=== PATIENT | female | born 1975 | race Caucasian/White ===

== ENCOUNTER 2020-04-19 15:54 | Emergency (ER) | payer SELFPAY ==
[2020-04-19 16:11] VITALS: BP 148/91; PULSE 71; RESP 21; TEMP 36.7; O2SAT 98; BMI 28.3
--- NOTE | 2020-04-19 16:17 | XR_ITS ---
PROCEDURE: XR HAND LT MIN 3V CLINICAL INDICATION: INJURY RING FINGER COMPARISON: No exams were available for comparison FINDINGS: Comminuted fracture involves the proximal and volar aspect of the distal phalanx of the 4th digit extending into the proximal articular surface. There is an additional bony fragment along the proximal aspect of the middle phalanx of the 4th digit volar surface the bone of origin of this fragment is unknown. This fragment is at least 1.6 cm proximal to the distal phalanx. The joint spaces are well-preserved. No significant degenerative/arthritic changes. No erosive changes evident. Other findings:None. IMPRESSION: Comminuted fracture distal phalanx 4th digit. There is a displaced which fragment overlies the proximal aspect of the middle phalanx Dictated by: Cristopher Mares MD 04/19/2020 16:40 Electronically signed by Cristopher Mares MD in [place] 04/19/2020 16:40
--- NOTE | 2020-04-19 16:45 | HMH.EDUTC ---
[facility] – [place] Disposition Clinical Impression: Flexor tendon bowstring Finger fracture, left Qualifiers: Encounter type: initial encounter Finger: ring finger Fracture type: closed Phalanx: distal Fracture alignment: displaced Qualified Code(s): S62.635A - Displaced fracture of distal phalanx of left ring finger, initial encounter for closed fracture Disposition: Home, Self-Care Condition on Discharge: Good Instructions: Finger Fracture, DI for Finger Fracture, Finger Flexor Tendon Injury, How To Perform RICE (Rest, Ice, Compress, Elevate), DI for Finger Flexor Tendon Injury Additional Instructions: DO not remove splint *Call [facility] tomorrow morning and ask them for appointment with Dr Gonsales in the clinic for fracture of finger with flexor tendon injury *RICE, Rest the extremity, Ice 15-20 minutes 3-4 times daily, Compress- wear the jaycob wrap as discussed as much as possible to help reduce swelling and pain, Elevate the extremity when at rest *Splint is for support Do not remove *Elevate when resting *Ibuprofen very 6-8 hours as needed for pain an inflammation. If need something more can take Tylenol in between doses of Ibuprofen to help Immediately follow up with your family doctor for new or worsening of symptoms, or no noticeable improvement over the next 3-5 days Return if needed Straight to ER if any life threatening symptoms You was given a disk of your xray make sure to take that with you to your appointment MAKE APPOINTMENT WITH PLASTIC SURGERY HAND WITH DR. GONSALES Referrals: Allison Marcial APRN [Primary Care Provider] - Plastic Surgery Hand Dr Gonsales [Other] Time of Disposition: 17:44 Medical Decision Making - Donis Inquiry Pt receiving controlled substance: No Donis was queried for this patient: No Vital Signs: 04/19/20 16:11 04/19/20 18:26 Temperature 98.0 F 98.0 F Temperature Source Temporal Artery Scan Pulse Rate 71 Pulse Rate [Right Brachial] 71 Respiratory Rate 21 21 Blood Pressure 148/91 H Blood Pressure [Right Arm] 148/91 H Blood Pressure Mean [Right Arm] 110 Blood Pressure Source [Right Arm] Automatic Cuff Blood Pressure Position [Right Arm] Sitting 02 Sat by Pulse Oximetry 98 Oxygen Delivery Method Room Air - Radiology Data #1 Image(s): Hand Image Reviewed: Yes I have reviewed radiologist's interpretation Comminuted fracture distal phalanx 4th digit. There is a displaced which fragment overlies the proximal aspect of the middle phalanx - Physician Consults Physician Consulted: Jose J Time: 16:50 Reason -: Orthopedic Eval/Care Comment/Response: Dr Lux notified advised that he would look at xray and call back to the [facility] with further instructions Dr Lux called back after looking at xrays and advised injury involved flexor tendon and recommended to be referred to Hand Surgeon for further evaluation and treatment Additional Consult: Flakito Time: 17:10 Reason -: Orthopedic Eval/Care Comment/Response: Spoke with international banker for [facility] advised they was unable to take patient due to no insurance and self pay to contact [facility] or [facility] they do self pay They was unable to see anyone without health insurance Additional Consult: [facility] Time: 17:29 Reason -: Orthopedic Eval/Care Comment/Response: Called [facility] and Spoke with Dr Hull and informed him of findings on xray and fracture with involvement of flexor tendon he advised if no open fracture, Dorsal posterior splint to relieve tension on flexor tendon at 90% curve and call [facility] tomorrow morning for appointment on Saturday with Dr Gonsales Medical Decision Narrative: Patient states that she has been unable to bend left ring finger since she was hit States that feels tight and hurts when she moves it No open fractures noted Patient advised tolerating pain well Discussed with patient that she needed to call Plastics tomorrow morning and request appointment with Dr Gonsales patient verbali
[2020-04-19 18:26] VITALS: BP 148/91; PULSE 71; RESP 21; TEMP 36.7; O2SAT 98
== END 2020-04-19 18:38 | disposition home or self-care (01) ==
PROVIDERS: Emergency Provider Nurse Practitioner; PCP Nurse Practitioner Family
DX: S62.635A Displaced fracture of distal phalanx of left ring finger, initial encounter for closed fracture (principal); S56.19 Other injury of flexor muscle, fascia and tendon of other and unspecified finger at forearm level; W31.89XA Contact with other specified machinery, initial encounter; Y92.019 Unspecified place in single-family (private) house as the place of occurrence of the external cause
CPT/HCPCS: 29125; 73130; 99203

== ENCOUNTER → 2020-08-17 15:17 | Outpatient (CLI) | payer SELFPAY ==
[2020-08-19 13:52] LABS: Covid-19 Nasal PCR Sendout Lex POSITIVE
== END ==
PROVIDERS: PCP Nurse Practitioner Family; Visit Provider Nurse Practitioner Family
DX: Z20.828 Contact with and (suspected) exposure to other viral communicable diseases (principal); U07.1 COVID-19
CPT/HCPCS: U0004

== ENCOUNTER 2021-06-09 22:28 | Emergency (ER) | payer SELFPAY ==
[2021-06-09 22:35] VITALS: BP 170/97; PULSE 87; RESP 17; TEMP 37.3; O2SAT 97; BMI 29.9
--- NOTE | 2021-06-09 22:42 | XR_ITS ---
PROCEDURE INFORMATION: Exam: XR Right Foot Exam date and time: 06/09/2021 10:42 PM Age: 45 years old Clinical indication: Injury or trauma; Fall; Sprain or strain; Foot; Injury date: 06/09/2021; Patient HX: Fell down stairs hurt both feet left hurts worse than right but the right one does hurt TECHNIQUE: Imaging protocol: XR Right foot. Views: 3 or more views. COMPARISON: VENOUS LOWER EXT RT 02/06/2016 12:16 PM FINDINGS: Bones/joints: There is hallux valgus deformity of the right 1st metatarsophalangeal joint. Moderate degenerative changes of the right 1st metatarsophalangeal joint identified. Os naviculare is identified. No evidence of acute fracture. Remaining joint spaces of the right foot appear well maintained. There is no evidence of acute fracture. Osseous mineralization is normal. Soft tissues: Normal. 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 There is no evidence of acute fracture or overlying soft tissue swelling.
--- NOTE | 2021-06-09 22:42 | XR_ITS ---
PROCEDURE INFORMATION: Exam: XR Left Foot Exam date and time: 06/09/2021 10:42 PM Age: 45 years old Clinical indication: Injury or trauma; Fall; Sprain or strain; Injury date: 06/09/2021; Patient HX: Fell down stairs pain left foot TECHNIQUE: Imaging protocol: XR Left foot. Views: 3 or more views. COMPARISON: No relevant prior studies available. FINDINGS: Bones/joints: No evidence of acute fracture. Individual joint spaces of the left foot appear well maintained. Benign os naviculare is identified. Osseous mineralization is normal. Soft tissues: Normal. IMPRESSION: No acute findings.
--- NOTE | 2021-06-09 23:58 | HMH.EDLOEX ---
ED Disposition Clinical Impression: Sprain of foot, left Qualifiers: Encounter type: initial encounter Qualified Code(s): S93.602A - Unspecified sprain of left foot, initial encounter Disposition: Home, Self-Care Condition on Discharge: Good Instructions: DI for Foot Sprain Additional Instructions: ice and advil/tyenol and wt bearing as chelsea and check bp Referrals: Allison Marcial APRN [Primary Care Provider] - Latrice Cruz DPM [Staff Physician] - - Critical Care Critical Care Time: No Attestation: On 06/09/21, the high probability of a clinically significant, sudden or life threatening deterioration of the following system(s) required my full and direct attention, intervention and personal management. The time I documented below is in addition to time spent performing reported procedures but includes the following listed in this critical care notation. Medical Decision Making - Medical Records Medical records reviewed: Yes: I reviewed the patient's medical records. - Donis Inquiry Pt receiving controlled substance: No Vital Signs: 06/09/21 22:35 Temperature 99.2 F Temperature Source Oral Pulse Rate [Right Brachial] 87 Respiratory Rate 17 Blood Pressure [Right Arm] 170/97 H Blood Pressure Mean [Right Arm] 121 Blood Pressure Source [Right Arm] Automatic Cuff Blood Pressure Position [Right Arm] Sitting 02 Sat by Pulse Oximetry 97 Oxygen Delivery Method Room Air - Lab Data Lab results reviewed: Yes: I reviewed the patient's lab results. Orders (Tests/Meds): ED MEDICATIONS Generic Name Dose Route Start Last Admin Trade Name Freq PRN Reason Stop Dose Admin Acetaminophen/Codeine Phosphate 1 eyal 06/09/21 23:56 Acetaminophen 300mg W/Codeine 30mg Take Home Pack (6) PO 06/09/21 23:57 ONCE ONE - Radiology Data #1 Image(s): Foot/Toes Image Reviewed: Yes I have reviewed radiologist's interpretation Preliminary Findings: No Fracture Seen Medical Decision Narrative: no fx seen and will have pt seen by podiatry Lower Extremity Injury HPI - General Chief Complaint: Extremity Injury, Lower Stated Complaint: AO fall 2100 injured feet Time Seen by Provider: 06/09/21 23:00 Mode of Arrival: Family Vehicle Source of Information: Patient, Medical Record Limitations: No Limitations Description of Symptoms (Recalled from ER Triage Doc. by RN): pt accidentally fell injuring both foot. left foot: lateral and anterior foot, right foot medial anterior foot. able to bear minimal weight on right foot, but difficulty on left - History of Present Illness HPI Narrative: acute injury to lt and rt foot - mis- stepped complaint: foot injury Onset (ago): hour(s) Injury: Bilateral: foot Type of Injury: hyperextension Place: home Context: fall Associated symptoms: snap/pop sensation, able to partially bear weight Other symptoms: none - Related Data Allergies Allergy/AdvReac Type Severity Reaction Status Date / Time No Known Allergies Allergy Verified 12/14/19 17:01 [facility] History - Hepatitis A Screen Drug use history?: No High risk sexual behaviors?: No History of sexually transmitted infection?: No Currently employed?: No Childcare worker?: No Do you have indoor plumbing?: Yes Do you have electricity?: Yes Attestation statement:: This patient has been screened for Hepatitis A risk factors. I have reviewed the patient's past medical history: Yes Medical History: Denies:: Diabetes Mellitus Type 1, Diabetes Mellitus Type 2 - Social History Smoking Status: Never smoker Alcohol Intake: never Occupational Status: other ROS Obtained: Yes All systems reviewed & no additional complaints - Constitutional Constitutional: Denies fever(s) - Eyes Eyes: Denies change in vision - ENT Ears, Nose, Mouth, and Throat: Denies sore throat - Cardiovascular Cardiovascular: Denies chest pain - Respiratory Respiratory: Denies shortness of breath - Gastrointestinal
[2021-06-10 00:06] VITALS: BP 162/90; PULSE 82; RESP 18; TEMP 36.7; O2SAT 99
== END 2021-06-10 00:12 | disposition home or self-care (01) ==
PROVIDERS: Emergency Provider Emergency Medicine; PCP Nurse Practitioner Family
DX: S93.602A Unspecified sprain of left foot, initial encounter (principal); M79.671 Pain in right foot; M79.672 Pain in left foot; W18.30XA Fall on same level, unspecified, initial encounter
CPT/HCPCS: 73630; 99283

== ENCOUNTER 2022-04-12 08:14 | Emergency (ER) | payer SELFPAY ==
[2022-04-12 08:30] VITALS: BP 125/69; PULSE 69; RESP 20; TEMP 36.9; O2SAT 95; BMI 30.9
--- NOTE | 2022-04-12 08:47 | CA_ITS ---
FINAL REPORT TECHNIQUE: Color Doppler, duplex Doppler and compression sonography of the right lower extremity venous system was performed. CLINICAL HISTORY: PAIN, SWELLING, Painful varicosities, Preious vein stripping of the Right leg FINDINGS: There is no evidence of deep venous thrombosis from the level of the groin to the calf. The veins are patent and compressible. IMPRESSION: No evidence of deep venous thrombosis right lower extremity. Reviewed, Interpreted and Dictated by Fercho Raygoza III, MD Transcribed by Charito Mas Authenticated and [facility]
--- NOTE | 2022-04-12 08:51 | HMH.EDUTC ---
[facility] [place] Clinical Impression: Cellulitis Qualifiers: Site of cellulitis: unspecified site Qualified Code(s): L03.90 - Cellulitis, unspecified Disposition: Home, Self-Care Condition on Discharge: Good Instructions: Cellulitis, Cephalexin Additional Instructions: *Start antibiotic(s) immediately and be sure to take as ordered for the FULL length of time although you may be feeling better or start to see improvement in the next 24-48 hours *Monitor closely. Outlined redness so that you can monitor easier. Follow up immediately for new or worsening symptoms including but not limited to redness, swelling, streaking from site fever or chills. *Warm compress 15 minutes 3-4 times day *Never squeeze or pop these on your own. Seek immediate medical attention next time this occurs *Monitor Temp. Tylenol every 4 hours as needed and ibuprofen every 6 hours as needed (as long as your primary care doctor has told you that it is ok to take both. For fever, aches, pain. ER if no less that 101 despite Tylenol and ibuprofen Follow up with your family doctor/primary care physician in the next 48-72 hours if no improvement Prescriptions: cephALEXin [cephALEXin 500mg capsule*] 500 mg PO QID 5 Days #20 cap Transmission Status: Received by [facility] Referrals: Allison Marcial APRN [Primary Care Provider] - As needed Medical Decision Making - Donis Inquiry Pt receiving controlled substance: No Donis was queried for this patient: No Vital Signs: 04/12/22 08:30 04/12/22 09:22 Temperature 98.4 F 98.4 F Temperature Source Oral Pulse Rate 69 Pulse Rate [Left Brachial] 69 Respiratory Rate 20 20 Blood Pressure 125/69 Blood Pressure [Left Arm] 125/69 Blood Pressure Mean [Left Arm] 87 Blood Pressure Source [Left Arm] Automatic Cuff Blood Pressure Position [Left Arm] Sitting 02 Sat by Pulse Oximetry 95 Oxygen Delivery Method Room Air - US Data US Images: Lower Extremity ED US Reviewed: Yes: I have viewed radiologist's interpretation Preliminary Findings: Normal/NAD Findings Narrative: FINDINGS: There is no evidence of deep venous thrombosis from the level of the groin to the calf. The veins are patent and compressible. IMPRESSION: No evidence of deep venous thrombosis right lower extremity. [facility] [place] - General Stated complaint: right leg pain Time Seen by Provider: 04/12/22 08:52 Mode of Arrival: Ambulatory Source of Information: Patient Limitations: No Limitations Description of Symptoms (Recalled from Triage Doc. by RN): PATIENT C/O PAIN TO RIGHT UPPER LEG WITH SOME SWELLING AND REDNESS. REPORTS A HISTORY OF BLOOD CLOTS HEENT Symptoms (Recalled from RN notes): No Resp Symptoms (Recalled from RN notes): No Skin Symptoms (Recalled from RN notes): No MS Symptoms (Recalled from RN notes): Yes Functional Status (Recalled from RN notes): WNL - History of Present Illness Provider Complaint: Patient states that she noticed she had a red area on her right upper thigh area and she has a history of DVT and she was concerned she may have another blood clot so she came in to get it checked out Denies any injury - Related Data Home Medications Medication Instructions Recorded Confirmed aspirin 81 mg tablet,delayed 81 mg PO DAILY 04/10/22 04/10/22 release metoprolol succinate 25 mg 25 mg PO DAILY tab 04/10/22 04/10/22 tablet,extended release 24 hr pantoprazole 40 mg tablet,delayed 40 mg PO DAILY 04/10/22 04/10/22 release Previous Rx's Medication Instructions Recorded triamterene 37.5 1 tab PO DAILY #90 tab 09/28/21 mg-hydrochlorothiazide 25 mg tablet phenytoin sodium extended 100 mg See Rx Instructions .ROUTE 02/14/22 capsule .COMPLEX #90 cap hydroxyzine HCl 10 mg tablet See Rx Instructions .ROUTE 04/02/22 .COMPLEX #90 tab fluconazole 150 mg tablet 150 mg PO ONCE #2 tab 04/10/22 cephALEXin [cephALEXin 500mg 500 mg PO QID 5 Days #20 cap 04/12/22 capsule*] Allergies Al
[2022-04-12 09:22] VITALS: BP 125/69; PULSE 69; RESP 20; TEMP 36.9; O2SAT 95
== END 2022-04-12 09:26 | disposition home or self-care (01) ==
PROVIDERS: Emergency Provider Nurse Practitioner; PCP Nurse Practitioner Family
DX: L03.115 Cellulitis of right lower limb (principal); Z86.718 Personal history of other venous thrombosis and embolism; Z79.82 Long term (current) use of aspirin; Z79.899 Other long term (current) drug therapy; I10 Essential (primary) hypertension; I49.9 Cardiac arrhythmia, unspecified
CPT/HCPCS: 93971; 99213; G0463

== ENCOUNTER 2022-10-06 06:41 | Emergency (ER) | payer SELFPAY ==
[2022-10-06 06:42] VITALS: BP 113/63; PULSE 102; RESP 20; TEMP 37; O2SAT 99; BMI 30.9
[2022-10-06 06:56] VITALS: BMI 30.9
[2022-10-06 07:00] VITALS: BP 113/63; PULSE 82; O2SAT 96
--- NOTE | 2022-10-06 07:16 | CT_ITS ---
PROCEDURE INFORMATION: Exam: CT Lumbar Spine Without Contrast Exam date and time: 10/06/2022 7:48 AM Age: 46 years old Clinical indication: Other: Right groin pain; Additional info: R groin pain radiating TECHNIQUE: Imaging protocol: Computed tomography of the lumbar spine without contrast. Radiation optimization: All CT scans at this facility use at least one of these dose optimization techniques: automated exposure control; mA and/or kV adjustment per patient size (includes targeted exams where dose is matched to clinical indication); or iterative reconstruction. COMPARISON: ABDPELW CT ABD PELVIS W/ CONTRAST 04/02/2017 3:43 PM FINDINGS: Evaluation is somewhat limited by patient body habitus. Bones/joints: Degenerative change, of greatest severity at the L5-S1 level. Multilevel disc bulging. Spinal stenosis at the L4-L5 level due to combined disc bulging, ligamentous hypertrophy, and facet arthropathy.Note that assessment of disc, spinal cord, and nerve root pathology is limited in the absence of intrathecal contrast. Gallbladder and bile ducts: Status post cholecystectomy. Soft tissues: Unremarkable appearance of the paraspinous soft tissues. Injection granuloma. IMPRESSION: 1. Spinal stenosis at the L4-L5 level due to combined disc bulging, ligamentous hypertrophy, and facet arthropathy. 2. Degenerative change, of greatest severity at the L5-S1 level. 3. Additional findings as described above.
--- NOTE | 2022-10-06 07:18 | XR_ITS ---
PROCEDURE INFORMATION: Exam: XR Pelvis Exam date and time: 10/06/2022 7:48 AM Age: 46 years old Clinical indication: Pelvic pain; Additional info: Pain. Right lower quadrant pain TECHNIQUE: Imaging protocol: Radiologic exam of the pelvis. Views: 1 or 2 view. COMPARISON: ABDPELW CT ABD PELVIS W/ CONTRAST 04/02/2017 3:43 PM FINDINGS: Bones/joints: Mild degenerative change. No acute bony injury or malalignment. Soft tissues: Skin folds. Vasculature: Subcentimeter pelvic calcifications, presumably vascular in etiology. IMPRESSION: Mild degenerative change.
[2022-10-06 07:24] LABS: Chloride 101 mmol/L (98-107)
[2022-10-06 07:25] LABS: Basophils % 0.5 % (0.1-2.0); Eosinophils % 0.6 % (0.1-12.0); Hematocrit 41.5 % (37.0-47.0); Hemoglobin 13.7 g/dL (12.2-16.2); Lymphocytes # 1.2 K/mm3 (0.7-4.5); Lymphocytes % 16.6 % (10-50); Mean Corpuscular HGB Conc 32.9 g/dL (31.8-35.4); Mean Corpuscular Hemoglobin 30.4 pg (27.0-31.2); Mean Corpuscular Volume 92.3 fl (81-99); Mean Platelet Volume 8.1 fl (7.4-10.4); Monocytes # 0.3 K/mm3 (0.1-1.0); Monocytes % 4.4 % (1.7-9.3); Neutrophils # 5.8 K/mm3 (1.8-7.8); Neutrophils % 77.9 % (37.0-80.0); Platelet Count 278 K/mm3 (142-424); Potassium 3.4 mmoL/L (3.5-5.1); Sodium 134 mmol/L (136-145); White Blood Count 7.4 K/mm3 (4.8-10.8)
--- NOTE | 2022-10-06 07:26 | PC.NURSE ---
dr. gaston at bedside
[2022-10-06 07:27] LABS: Alanine Aminotransferase 26 U/L (12-78); Aspartate Amino Transferase 30 U/L (14-36); Blood Urea Nitrogen 11 mg/dl (7-17); Creatinine Clearance Estimated 116 mL/min (50-200); Estimated Glomerular Filt Rate 78 ml/min (>60); GFR (African American) 94 ML/MIN (>60)
[2022-10-06 07:28] LABS: Albumin Level 4.1 g/dl (3.5-5.0); Albumin/Globulin Ratio 1.4 (1.1-1.8); Alkaline Phosphatase 86 U/L (38-126); Anion Gap 10.4 mEq/L (5-15); Bilirubin,Total 0.4 mg/dl (0.2-1.3); Calcium 9.3 mg/dl (8.4-10.2); Carbon Dioxide 26 mmol/L (22.0-30.0); Globulin 2.9 g/dL (1.3-3.2); Glucose 123 mg/dl (74-100); Magnesium 1.7 mg/dl (1.6-2.3)
[2022-10-06 07:32] LABS: HCG Qualitative, Serum Negative (Negative)
[2022-10-06 07:43] LABS: Microscopic, Urine URINE MICROSCOPIC (MICROSCOPIC)
--- NOTE | 2022-10-06 07:46 | PC.NURSE ---
pt to radiology
[2022-10-06 07:48] LABS: Appearance,Urine CLEAR (Clear); Bilirubin,Urine Negative (Negative); Blood, Urine Negative (Negative); Color,Urine YELLOW (Yellow); Glucose,Urine (UA) Negative (Negative); Ketones,Urine Negative (Negative); Leukocyte Esterase,Urine Negative (Negative); Nitrate,Urine Negative (Negative); Protein,Urine Negative (Negative); Specific Gravity, Urine 1.015 (1.005-1.030); Urobilinogen,Urine 0.2 EU/dl (0.2)
[2022-10-06 07:54] LABS: Phenytoin (Dilantin) < 3.0 ug/ml (10-20)
[2022-10-06 07:59] LABS: Bacteria,Urine Trace /lpf
--- NOTE | 2022-10-06 08:28 | HMH.EDGENADL ---
Discharge Plan Disposition Patient Disposition: Home, Self-Care Prescriptions Prescriptions: No Action aspirin 81 mg tablet,delayed release (DR/EC) 81 mg PO DAILY pantoprazole 40 mg tablet,delayed release (DR/EC) 40 mg PO DAILY phenytoin sodium extended 100 mg capsule See Rx Instructions .ROUTE .COMPLEX Rx Instructions: TAKE ONE CAPSULE BY MOUTH ONCE A DAY triamterene-hydrochlorothiazid 37.5-25 mg tablet 1 tab PO DAILY metoprolol succinate 25 mg tablet extended release 24 hr See Rx Instructions .ROUTE .COMPLEX Rx Instructions: TAKE ONE TABLET BY MOUTH ONCE A DAY FOR HYPERTENSION hydroxyzine HCl 10 mg tablet See Rx Instructions .ROUTE .COMPLEX Rx Instructions: TAKE ONE TABLET BY MOUTH 3 TIMES A DAY NEEDED FOR ITCHING Referrals Follow up/Referrals: Karthik Roy MD [Primary Care Provider] - See instructions Clinical Impressions Clinical Impression: Lumbar radicular syndrome, Degenerative lumbar spinal stenosis Instructions Patient Instructions: DI for Lumbar Radiculopathy Discharge ED Provider: Cristofer Whitlock General Adult HPI General Chief complaint: PAIN Stated complaint: Pain in right leg, no injury Time Seen by Provider: 10/06/22 07:35 Mode of Arrival: Family Vehicle Source of Information: Patient and Spouse Limitations: No Limitations Description of Symptoms (Recalled from ER Triage Doc. by RN): Pt c/o radiating pain from R groin/hip area through RLE. Pulses and CLOTH CLASSER are WNL. No redness, rash, or injury noted to RLE. Spouse states she has back trouble and previsou surgery and typically her LLE is effected. However, yesterday she noted the RLE to be burning all the way down while walking. Then in the evening and t/o the night RLE was jumping and cramping . She has taken tylenol & motrin with very little relief. Laying on her R side provides a small amount of relief. Pt also saw a Chiropractor on for an adjustment, which did help her for 1 day. History of Present Illness HPI narrative: pt with acute rt groin and rt lower leg with hx of prev back surg - no fever or rash and no cauda equina sx - Onset (ago): day(s) Severity: moderate Associated symptoms: denies other symptoms Related Data Home Medications Medication Instructions Recorded Confirmed aspirin 81 mg tablet,delayed 81 mg PO DAILY Blood thinner 04/10/22 10/06/22 release pantoprazole 40 mg tablet,delayed 40 mg PO DAILY acid reflux 04/10/22 10/06/22 release hydroxyzine HCl 10 mg tablet See Rx Instructions .Route 10/06/22 10/06/22 .COMPLEX itching metoprolol succinate 25 mg See Rx Instructions .Route 10/06/22 10/06/22 tablet,extended release 24 hr .COMPLEX Hypertension phenytoin sodium extended 100 mg See Rx Instructions .Route 10/06/22 10/06/22 capsule .COMPLEX seizure triamterene 37.5 1 tab PO DAILY Hypertension 10/06/22 10/06/22 mg-hydrochlorothiazide 25 mg tablet Allergies Allergy/AdvReac Type Severity Reaction Status Date / Time No Known Allergies Allergy Verified 04/10/22 15:05 [facility] Disclaimer: The information contained in this section may have been updated after the patient was seen, as this information can be updated by other users. Social History Smoking Status: Never smoker alcohol intake: never substance use type: denies use current occupational status: other Travel in the last 8 weeks: None ROS Obtained: Yes All systems reviewed & no additional complaints except as documented Physical Exam General General appearance: alert Head Head exam: normocephalic Eye Eye exam: Present PERRL and EOMI ENT ENT exam: Present mucous membranes moist Neck Neck exam: Present trachea midline Respiratory Respiratory exam: Absent respiratory distress Cardiovascular Cardiovascular exam: Present regular rate Abdominal Exam Abdominal exam: Present soft Neurological Exam Neurological exam: Present alert, oriented X3 and CN II-
[2022-10-06 08:30] VITALS: BP 116/62; PULSE 81; O2SAT 99
--- NOTE | 2022-10-06 08:45 | PC.NURSE ---
rounded on pt, reports some better md notified
[2022-10-06 09:00] VITALS: BP 105/50; PULSE 79; O2SAT 97
--- NOTE | 2022-10-06 09:06 | HMH.EDGENADL ---
Discharge Plan Disposition Patient Disposition: Home, Self-Care Prescriptions Prescriptions: New prednisone [prednisone] 20 mg tablet 20 mg PO BID Qty: 10 0RF ketorolac 10 mg tablet 10 mg PO TID 5 Days Qty: 15 0RF No Action aspirin 81 mg tablet,delayed release (DR/EC) 81 mg PO DAILY pantoprazole 40 mg tablet,delayed release (DR/EC) 40 mg PO DAILY phenytoin sodium extended 100 mg capsule See Rx Instructions .ROUTE .COMPLEX Rx Instructions: TAKE ONE CAPSULE BY MOUTH ONCE A DAY triamterene-hydrochlorothiazid 37.5-25 mg tablet 1 tab PO DAILY metoprolol succinate 25 mg tablet extended release 24 hr See Rx Instructions .ROUTE .COMPLEX Rx Instructions: TAKE ONE TABLET BY MOUTH ONCE A DAY FOR HYPERTENSION hydroxyzine HCl 10 mg tablet See Rx Instructions .ROUTE .COMPLEX Rx Instructions: TAKE ONE TABLET BY MOUTH 3 TIMES A DAY NEEDED FOR ITCHING Referrals Follow up/Referrals: Karthik Roy MD [Primary Care Provider] - See instructions Clinical Impressions Clinical Impression: Lumbar radicular syndrome, Degenerative lumbar spinal stenosis Instructions Patient Instructions: DI for Lumbar Radiculopathy Discharge ED Provider: Yaniv Villagomez General Adult HPI General Chief complaint: PAIN Stated complaint: Pain in right leg, no injury Time Seen by Provider: 10/06/22 07:35 Mode of Arrival: Family Vehicle Source of Information: Patient and Spouse Limitations: No Limitations Description of Symptoms (Recalled from ER Triage Doc. by RN): Pt c/o radiating pain from R groin/hip area through RLE. Pulses and [employer] are WNL. No redness, rash, or injury noted to RLE. Spouse states she has back trouble and previsou surgery and typically her LLE is effected. However, yesterday she noted the RLE to be burning all the way down while walking. Then in the evening and t/o the night RLE was jumping and cramping . She has taken tylenol & motrin with very little relief. Laying on her R side provides a small amount of relief. Pt also saw a Chiropractor on for an adjustment, which did help her for 1 day. History of Present Illness HPI narrative: pt with rt hip pain ro rt lower ext w/o trauma Onset (ago): day(s) Severity: moderate Associated symptoms: denies other symptoms Related Data Home Medications Medication Instructions Recorded Confirmed aspirin 81 mg tablet,delayed 81 mg PO DAILY Blood thinner 04/10/22 10/06/22 release pantoprazole 40 mg tablet,delayed 40 mg PO DAILY acid reflux 04/10/22 10/06/22 release hydroxyzine HCl 10 mg tablet See Rx Instructions .Route 10/06/22 10/06/22 .COMPLEX itching metoprolol succinate 25 mg See Rx Instructions .Route 10/06/22 10/06/22 tablet,extended release 24 hr .COMPLEX Hypertension phenytoin sodium extended 100 mg See Rx Instructions .Route 10/06/22 10/06/22 capsule .COMPLEX seizure triamterene 37.5 1 tab PO DAILY Hypertension 10/06/22 10/06/22 mg-hydrochlorothiazide 25 mg tablet Previous Rx's Medication Instructions Recorded ketorolac 10 mg tablet 10 mg PO TID 5 days #15 tabs 10/06/22 prednisone 20 mg tablet 20 mg PO BID #10 tabs 10/06/22 Allergies Allergy/AdvReac Type Severity Reaction Status Date / Time No Known Allergies Allergy Verified 04/10/22 15:05 [facility] Disclaimer: The information contained in this section may have been updated after the patient was seen, as this information can be updated by other users. Social History Smoking Status: Never smoker alcohol intake: never substance use type: denies use current occupational status: other Travel in the last 8 weeks: None ROS Obtained: Yes All systems reviewed & no additional complaints except as documented Physical Exam General General appearance: alert Head Head exam: normocephalic Eye Eye exam: Present PERRL and EOMI ENT ENT exam: Present mucous membranes moist Neck Neck exam: Present tr
[2022-10-06 09:30] VITALS: BP 112/49; PULSE 78; RESP 17; TEMP 36.7; O2SAT 97
== END 2022-10-06 09:30 | disposition home or self-care (01) ==
PROVIDERS: Emergency Provider Emergency Medicine; PCP Family Medicine
DX: M54.16 Radiculopathy, lumbar region (principal); M48.061 Spinal stenosis, lumbar region without neurogenic claudication; M25.551 Pain in right hip; I10 Essential (primary) hypertension; Z79.52 Long term (current) use of systemic steroids; Z79.82 Long term (current) use of aspirin; Z79.899 Other long term (current) drug therapy
CPT/HCPCS: 72131; 72170; 80053; 80185; 81001; 83735; 84703; 85025; 96361; 96374; 96375; 99285

== ENCOUNTER 2024-05-02 23:17 | Emergency (ER) | payer SELFPAY ==
[2024-05-02 23:18] VITALS: BP 163/78; PULSE 97; RESP 19; TEMP 36.3; O2SAT 100; BMI 30.9
[2024-05-02 23:22] VITALS: BMI 30.9
--- NOTE | 2024-05-02 23:22 | ED_ITS ---
Discharge Plan Disposition Patient Disposition: Home, Self-Care Prescriptions Prescriptions: New ondansetron HCl 4 mg tablet 4 mg PO Q8H PRN (Reason: nausea and vomiting) 5 Days Qty: 30 0RF No Action aspirin 81 mg tablet,delayed release (DR/EC) 81 mg PO DAILY phenytoin sodium extended 100 mg capsule See Rx Instructions .ROUTE .COMPLEX Rx Instructions: TAKE ONE CAPSULE BY MOUTH ONCE A DAY triamterene-hydrochlorothiazid 37.5-25 mg tablet 1 tab PO DAILY metoprolol succinate 25 mg tablet extended release 24 hr See Rx Instructions .ROUTE .COMPLEX Rx Instructions: TAKE ONE TABLET BY MOUTH ONCE A DAY FOR HYPERTENSION hydroxyzine HCl 10 mg tablet See Rx Instructions .ROUTE .COMPLEX Rx Instructions: TAKE ONE TABLET BY MOUTH 3 TIMES A DAY NEEDED FOR ITCHING Referrals Follow up/Referrals: Provider,Referral, MD [Referring] - See instructions Activity Restrictions/Add. Instructions Additional Instructions/Restrictions: Please follow-up with your primary care provider. Please return to the emergency department if you develop any new or worsening symptoms or become concerned for your health. Please take Zofran as needed for nausea vomiting. Clinical Impressions Clinical Impression: Nausea & vomiting Discharge ED Provider: Tristin Thakkar General Adult HPI General Chief complaint: Chest Pain Stated complaint: Chest pain Time Seen by Provider: 05/02/24 23:21 History of Present Illness HPI narrative: 48-year-old female with history of prior colectomy, hypertension, presents for vomiting. She reports that she started vomiting a couple of hours ago and then developed some left arm pain. Reports some chest discomfort while she was vomiting but denies active chest pain at the moment. Reports no recent sick contacts or new food intake. Denies any history of coronary disease. Does report history of blood clots in the past. Not on blood thinners. Related Data Home Medications Medication Instructions Recorded Confirmed aspirin 81 mg tablet,delayed 81 mg PO DAILY Blood thinner 04/10/22 05/02/24 release hydroxyzine HCl 10 mg tablet See Rx Instructions .Route 10/06/22 05/02/24 .COMPLEX itching metoprolol succinate 25 mg See Rx Instructions .Route 10/06/22 05/02/24 tablet,extended release 24 hr .COMPLEX Hypertension phenytoin sodium extended 100 mg See Rx Instructions .Route 10/06/22 05/02/24 capsule .COMPLEX seizure triamterene 37.5 1 tab PO DAILY Hypertension 12/24/22 07/20/24 mg-hydrochlorothiazide 25 mg tablet Previous Rx's Medication Instructions Recorded ondansetron HCl 4 mg tablet 4 mg PO Q8H PRN nausea and 05/03/24 vomiting 5 days #30 tabs Allergies Allergy/AdvReac Type Severity Reaction Status Date / Time No Known Allergies Allergy Verified 04/10/22 15:05 [facility] Disclaimer: The information contained in this section may have been updated after the patient was seen, as this information can be updated by other users. Social History Smoking Status: Never smoker alcohol intake: never substance use type: denies use current occupational status: other Travel in the last 8 weeks: None ROS Obtained: Yes All systems reviewed & no additional complaints except as documented Physical Exam General General appearance: alert and in no apparent distress Head Head exam: atraumatic and normocephalic Eye Eye exam: Present normal appearance, PERRL and EOMI ENT ENT exam: Present normal oropharynx and normal external ear exam Neck Neck exam: Present normal inspection and full ROM Chest Chest inspection: Present normal inspection and symmetric chest wall rise; Absent tenderness Respiratory Respiratory exam: Present normal lung sounds bilaterally; Absent respiratory distress Cardiovascular Cardiovascular exam: Present regular rate and normal rhythm Abdominal Exam Abdominal exam: Present soft; Absent distention, tenderness or guarding Extremities Exam Extremities exam: Present normal inspection; Absent edema or joint swelling Back Exam Back exam: Present normal inspection; Absent tenderness Neurological Exam Neurological exam: Present alert and oriented X3; Absent motor sensory deficit Psychiatric Psychiatric exam: Present normal affect and normal mood Skin Skin exam: Present warm, dry and normal color Lymphatic Lymphatic Findings: no adenopathy Medical Decision Making Medical Records Medical records reviewed: Yes I reviewed the patient's medical records. Donis Inquiry Pt receiving controlled substance: No Donis was queried for this patient: No Vital Signs: 05/02/24 23:18 05/02/24 23:30 05/03/24 00:00 Temperature 97.4 F L Temperature Source Oral Pulse Rate 94 H 92 H Pulse Rate [Left] 97 H Respiratory Rate 19 12 17 Blood Pressure 137/86 128/90 Blood Pressure [Right Arm] 163/78 H Blood Pressure Mean [Right Arm] 106 02 Sat by Pulse Oximetry 100 98 97 Oxygen Delivery Method Room Air Room Air Room Air 05/03/24 00:30 05/03/24 01:00 05/03/24 01:30 Temperature Temperature Source Pulse Rate 86 85 84 Pulse Rate [Left] Respiratory Rate 17 17 14 Blood Pressure 120/81 111/69 114/74 Blood Pressure [Right Arm] Blood Pressure Mean [Right Arm] 02 Sat by Pulse Oximetry 98 96 96 Oxygen Delivery Method Room Air Room Air Room Air 05/03/24 02:00 05/03/24 03:05 05/03/24 03:05 Temperature 97.9 F Temperature Source Oral Pulse Rate 88 83 83 Pulse Rate [Left] Respiratory Rate 18 18 Blood Pressure 108/71 L 108/71 L Blood Pressure [Right Arm] Blood Pressure Mean [Right Arm] 02 Sat by Pulse Oximetry 97 Oxygen Delivery Method Room Air Room Air Lab Data Lab results reviewed: Yes I reviewed the patient's lab results. Lab Results 05/02/24 23:30: WBC 12.1 H, RBC 4.63, Hgb 14.1, Hct 42.1, MCV 90.9, MCH 30.3, MCHC 33.4, RDW 13.5, Plt Count 272, MPV 7.9, Neut % (Auto) 79.2, Lymph % (Auto) 13.8, [place] % (Auto) 5.0, Eos % (Auto) 1.7, Baso % (Auto) 0.4, Neut # (Auto) 9.6 H, Lymph # (Auto) 1.7, [place] # (Auto) 0.6, Eos # (Auto) 0.2, Baso # (Auto) 0.1, D -Dimer 0.52 H, Sodium 139, Potassium 3.4 L, Chloride 103, Carbon Dioxide 28, Anion Gap 11.4, BUN 12, Creatinine 0.80, Estimated Creat Clear 113, Estimated GFR 77, Est GFR ( Amer) 93, Glucose 121 H, Calcium 9.2, Total Bilirubin 0.4, AST 39 H, ALT 30, Alkaline Phosphatase 100, Troponin I < 0.01, Total Protein 7.1, Albumin 4.1, Globulin 3.0, Albumin/Globulin Ratio 1.4, Lipase 274 05/03/24 02:21: Troponin I < 0.01 05/02/24 23:30 05/02/24 23:30 Orders (Tests/Meds): ED MEDICATIONS Discontinued Medications Generic Name Dose Route Start Last Admin Trade Name Freq PRN Reason Stop Dose Admin Acetaminophen 1,000 mg 05/02/24 23:36 05/02/24 23:50 Acetaminophen 500mg Tab PO 05/02/24 23:37 1,000 mg ONCE ONE Administration Aspirin 324 mg 05/02/24 23:22 05/02/24 23:23 Aspirin 81mg Chewable Tablet PO 05/02/24 23:23 324 mg ONCE ONE Administration Lactated Ringer's 1,000 mls @ 999 mls/hr 05/02/24 23:45 05/02/24 23:51 Lactated Ringer's 1000 Ml Bag IV 05/03/24 00:45 999 mls/hr .Q1H1M KAREEM Administration Lidocaine HCl 15 ml 05/02/24 23:36 05/02/24 23:50 Lidocaine 2% Viscous Bianca 15ml Udc PO 05/02/24 23:37 15 ml ONCE ONE Administration Ondansetron HCl 4 mg 05/02/24 23:41 05/02/24 23:50 Ondansetron 4mg/2ml Vial IV 05/02/24 23:42 4 mg ONCE ONE Administration ORDERS Category Date Time Status CXR --portable [XR chest portable] Stat Exams 05/02/24 23:37 Completed CBC w/Auto Diff [Complete Blood Count Auto Diff] Stat Lab 05/02/24 23:30 Completed CMP [Comprehensive Metabolic Panel] Stat Lab 05/02/24 23:30 Completed D-Dimer Stat Lab 05/02/24 23:30 Completed Lipase Stat Lab 05/02/24 23:30 Completed Troponin I Q3H Lab 05/02/24 23:30 Completed Troponin I Q3H Lab 05/03/24 02:21 Completed ECG Data Tracing #1: I reviewed this ECG and interpreted as documented below: Sinus rhythm with some sinus arrhythmia, rate of 94, no concerning ST or T wave changes ECG initial impression date: 05/02/24 ECG initial impression time: 23:20 HEART Score History (anamnesis): Slightly suspicious ECG: Normal Age: 45-65 years Risk factors: 1-2 risk factors Troponin: </= normal limit HEART Score: 2 Medical Decision Narrative: 48-year female with history as document above presents for a couple hours of nausea vomiting and left arm pain.. History was obtained via interactive discussion with patient, family. On arrival, patient is [afebrile, hemodynamically stable, satting appropriately, alert, oriented x4, GCS 15], moving all extremities spontaneously. Full physical exam performed and significant for benign physical exam Differential includes but is not limited to gastroenteritis, esophagitis, ACS, PE, pancreatitis,. Patient was given Zofran, viscous lidocaine, full dose aspirin, Tylenol, 1 L fluid bolus for symptomatic management and correction of underlying abnormalities. Workup initiated including CBC CMP troponin D-dimer chest x-ray EKG.. Unable to PERC out secondary to prior DVT. On re-evaluation, patient [remains afebrile, HD stable.] Laboratory workup independently interpreted by me and significant for minimal leukocytosis, undetectable initial troponin, D-dimer negative by years criteria, no significant electrolyte derangement.. Imaging independently interpreted by me and significant for unremarkable chest x-ray without focal opacity.. See radiology read for full review of final results. Repeat troponin negative. Interactive discussion was had with patient regarding her presentation. Low concern for emergent pathology at this time. Patient likely has a developing GI bug. Patient discharged in stable condition. Given prescription for Zofran. Procedures Risk/Benefits of Procedure(s) Were Explained: Yes Critical Care Critical Care Time Critical Care Time: No
[2024-05-02] MEDS: ASPIRIN 81MG CHEWABLE TABLET 324 MG PO (23:23)
[2024-05-02 23:30] VITALS: BP 137/86; PULSE 94; RESP 12; O2SAT 98
--- NOTE | 2024-05-02 23:37 | ECG_ITS ---
APPROVED REPORT Exam: Resting ECG HR:94 bpm ECG Measurements Heart Rate 94 AXES ND 168 P 64 QRSd 98 QRS 56 QT 363 T 56 QTc 415 Conclusion SINUS RHYTHM WITH MARKED SINUS ARRHYTHMIA BORDERLINE ECG UNCONFIRMED REPORT Electronically signed by : KODAK MENDOZA, 05/04/2024 00:35:20
--- NOTE | 2024-05-02 23:37 | XR_ITS ---
PROCEDURE INFORMATION: Exam: XR Chest Exam date and time: 05/02/2024 11:38 PM Age: 48 years old Clinical indication: Pain; Angina pectoris; Additional info: Cp TECHNIQUE: Imaging protocol: Radiologic exam of the chest. Views: 1 view. COMPARISON: CT CHEST WO CON 12/19/2019 9:46 PM FINDINGS: Lungs: No focal consolidation. Pleural spaces: No pneumothorax. Heart/Mediastinum: Unremarkable cardiomediastinal silhouette. Bones/joints: No acute osseous findings. IMPRESSION: No focal consolidation.
[2024-05-02 23:44] LABS: Basophils # 0.1 K/mm3 (0-0.2); Basophils % 0.4 % (0.1-2.0); Eosinophils # 0.2 K/mm3 (0.0-0.4); Eosinophils % 1.7 % (0.1-12.0); Hematocrit 42.1 % (37.0-47.0); Hemoglobin 14.1 g/dL (12.2-16.2); Lymphocytes # 1.7 K/mm3 (0.7-4.5); Lymphocytes % 13.8 % (10-50); Mean Corpuscular HGB Conc 33.4 g/dL (31.8-35.4); Mean Corpuscular Hemoglobin 30.3 pg (27.0-31.2); Mean Corpuscular Volume 90.9 fl (81-99); Mean Platelet Volume 7.9 fl (7.4-10.4); Monocytes # 0.6 K/mm3 (0.1-1.0); Neutrophils # 9.6 K/mm3 (1.8-7.8); Neutrophils % 79.2 % (37.0-80.0); Platelet Count 272 K/mm3 (142-424); Red Blood Count 4.63 M/mm3 (4.20-5.40); Red Cell Distribution Width 13.5 % (11.5-17.5); White Blood Count 12.1 K/mm3 (4.8-10.8)
[2024-05-02] MEDS: LIDOCAINE 2% VISCOUS SOL 15ML UDC 15 ML PO (23:50)
[2024-05-02] MEDS: ONDANSETRON 4MG/2ML VIAL 4 MG IV (23:50)
[2024-05-02] MEDS: ACETAMINOPHEN 500MG TAB 1000 MG PO (23:50)
[2024-05-02 23:51] LABS: Alanine Aminotransferase 30 U/L (12-78); Albumin Level 4.1 g/dl (3.5-5.0); Albumin/Globulin Ratio 1.4 (1.1-1.8); Alkaline Phosphatase 100 U/L (38-126); Anion Gap 11.4 mEq/L (5-15); Aspartate Amino Transferase 39 U/L (14-36); Bilirubin,Total 0.4 mg/dl (0.2-1.3); Blood Urea Nitrogen 12 mg/dl (7-17); Calcium 9.2 mg/dl (8.4-10.2); Carbon Dioxide 28 mmol/L (22.0-30.0); Chloride 103 mmol/L (98-107); Creatinine Clearance Estimated 113 mL/min (50-200); Estimated Glomerular Filt Rate 77 ml/min (>60); GFR (African American) 93 ML/MIN (>60); Glucose 121 mg/dl (74-100); Potassium 3.4 mmoL/L (3.5-5.1); Sodium 139 mmol/L (136-145); Total Protein,Serum 7.1 g/dl (6.3-8.2)
[2024-05-02] MEDS: LACTATED RINGERS 1000ML 1,000 ML 999 ML IV (23:51)
[2024-05-02 23:52] LABS: Lipase 274 U/L (23-300)
[2024-05-02 23:55] LABS: D-Dimer 0.52 ug/mL (0.0-0.5)
[2024-05-03] VITALS: BP 128/90; PULSE 92; RESP 17; O2SAT 97
[2024-05-03 00:05] LABS: Troponin I < 0.01 ng/ml (0.00-0.034)
[2024-05-03 00:30] VITALS: BP 120/81; PULSE 86; RESP 17; O2SAT 98
[2024-05-03 01:00] VITALS: BP 111/69; PULSE 85; RESP 17; O2SAT 96
[2024-05-03 01:30] VITALS: BP 114/74; PULSE 84; RESP 14; O2SAT 96
[2024-05-03 02:00] VITALS: BP 108/71; PULSE 88; RESP 18; O2SAT 97
[2024-05-03 02:55] LABS: Troponin I < 0.01 ng/ml (0.00-0.034)
[2024-05-03 03:05] VITALS: BP 108/71; PULSE 83; RESP 18; TEMP 36.6; O2SAT 96
== END 2024-05-03 03:16 | disposition home or self-care (01) ==
PROVIDERS: Emergency Provider Emergency Medicine; PCP Family Medicine
DX: R11.2 Nausea with vomiting, unspecified (principal); M79.602 Pain in left arm; I49.9 Cardiac arrhythmia, unspecified
CPT/HCPCS: 71045; 80053; 83690; 84484; 85025; 85378; 93005; 96374; 96375; 99284; J2405; J7120